=== PATIENT | male | born 2005 | race Caucasian/White ===

== ENCOUNTER 2025-05-24 19:56 | Emergency (ER) | payer SELFPAY ==
[2025-05-24] MEDS ORDERED: Dexamethasone 10 MG/ML VIAL ONE (21:00)
== END 2025-05-24 21:02 | disposition home or self-care (01) ==
LOC: MADERS 19:56
DX: J10.1 Influenza due to other identified influenza virus with other respiratory manifestations (principal)
CPT/HCPCS: 87081; 87428; 87430; 99283; J1100